=== PATIENT | male | born 1955 | race Caucasian/White ===

== ENCOUNTER 2020-08-25 07:15 | Emergency (ER) | payer MEDICARE, OTHER ==
[~2020-08-25] VITALS: Ht 172.7 cm; Wt 83.9 kg
--- NOTE | 2020-08-25 07:33 | NUR ---
CLARA, C/O LEFT RIB "THROBBING" PAIN X COUPLE WEEKS, PS 12/26. TO ER BED 10, HOOKED TO MONITOR, CHANGED TO HOSP GOWN, WARM BLANKET PROVIDED. AWAITING MD NDIAYE
--- NOTE | 2020-08-25 07:38 | NUR ---
DR ARIAS AT BEDSIDE
[2020-08-25 08:46] VITALS: BP 144/80
--- NOTE | 2020-08-25 08:46 | NUR ---
Patient discharged to home in stable condition. Written and verbal after care instructions given. Patient verbalizes understanding of instruction.
== END 2020-08-25 08:47 | disposition home or self-care (01) ==
LOC: ER 07:19
DX: M54.10 Radiculopathy, site unspecified (principal); I10 Essential (primary) hypertension; E78.00 Pure hypercholesterolemia, unspecified; Z60.2 Problems related to living alone
CPT/HCPCS: 71045-TC